=== PATIENT | female | born 1950 | race Caucasian/White ===

== ENCOUNTER 2020-01-27 13:59 | Outpatient (CLI) | payer MEDICARE, SELFPAY ==
--- NOTE | ~2020-01-27 | XR_ITS ---
XR lumbar spine 2-3V DATE: 01/27/2020 14:40 INDICATION: Low back pain, left hip pain, chronic, worsening TECHNIQUE: AP, lateral, coned lateral lumbosacral views COMPARISON: None FINDINGS: There is posterior surgical fusion at L5-S1. There is grade 1 anterolisthesis and prominent degenerative disc disease at L5-S1. No fracture or bone destruction is evident. The sacroiliac joints are unremarkable other than some degenerative sclerosis and spurring. IMPRESSION: Posterior spinal fusion, degenerative disc disease and grade 1 anterolisthesis at L5-S1 Reviewed, dictated and finalized at location A. IMPRESSION: Posterior spinal fusion, degenerative disc disease and grade 1 ante rolisthesis at L5-S1
--- NOTE | ~2020-01-27 | XR_ITS ---
EXAMINATION: XR hip LT min 2V DATE: 01/27/2020 14:40 INDICATION: Left hip pain. TECHNIQUE: 2 views of left hip were obtained. COMPARISON: None. FINDINGS: Bone alignment is normal. No fracture. Left hip joint space is normal. IMPRESSION: 1. No fracture. Reviewed, dictated and finalized at location A. IMPRESSION: 1. No fracture.
== END 2020-01-27 14:00 | disposition home or self-care (01) ==
LOC: CHSIMG 14:07
PROVIDERS: PCP Internal Medicine; Visit Provider Internal Medicine
DX: M54.5 Low back pain (principal); M25.552 Pain in left hip
CPT/HCPCS: 72100; 73502

== ENCOUNTER 2020-02-06 08:39 | Outpatient (CLI) | payer MEDICARE, SELFPAY ==
--- NOTE | ~2020-02-06 | MR_ITS ---
EXAMINATION: MR lumbar spine wo con EXAM DATE: 02/06/2020 09:35 INDICATION: Lumbar spine surgery 2001. Left hip pain. Right radiculopathy. TECHNIQUE: Multi-sequential, multiplanar MR images of the lumbar spine were obtained without contrast . Sagittal T1, T2, T2 fat saturation images. Axial T2 weighted images. There is no prior study for comparison. FINDINGS: There is posterior fusion hardware L5-S1, and about 5 mm anterolisthesis, moderate disc dis ease with endplate degenerative signal change at this level. The vertebral bodies are otherwise align ed. The vertebral body and disc heights are otherwise well maintained. Paraspinal soft tissue is unre markable. Level by level evaluation: T12-L1: Disc does not extend beyond the endplate margin. Facet arthropathy: Minimal. Neural foraminal stenosis: No stenosis. Central canal stenosis: No stenosis. L1-L2: Disc does not extend beyond the endplate margin. Facet arthropathy: Mild. Neural foraminal stenosis: No stenosis. Central canal stenosis: No stenosis. L2-L3: There is a minimal diffuse disc bulge. Facet arthropathy: Moderate. Neural foraminal stenosis: Mild to moderate bilateral. Central canal stenosis: No stenosis. L3-L4: There is a mild diffuse disc bulge. Facet arthropathy: Moderate. Neural foraminal stenosis: Mild to moderate bilateral. Central canal stenosis: Mild to moderate. L4-L5: There is a minimal diffuse disc bulge. Facet arthropathy: Moderate. Neural foraminal stenosis: Mild bilateral. Central canal stenosis: Mild. L5-S1: Disc does not extend beyond the endplate margin. Facet arthropathy: None. Neural foraminal stenosis: No stenosis. Central canal stenosis: No stenosis. IMPRESSION: 1. L5-S1 fusion, grade 1 anterolisthesis. 2. Mild to moderate lumbar spondylosis. Reviewed, dictated and finalized at location A.
== END 2020-02-06 08:40 | disposition home or self-care (01) ==
LOC: CHSIMG 08:42
PROVIDERS: PCP Internal Medicine; Visit Provider Internal Medicine
DX: M54.16 Radiculopathy, lumbar region (principal)
CPT/HCPCS: 72148

== ENCOUNTER 2020-03-24 12:37 | Outpatient (CLI) | payer MEDICARE, SELFPAY ==
--- NOTE | ~2020-03-24 | DEXA_ITS ---
BMD(1) Young-Adult(2,7) Age-Matched(3) Region (g/cm2) T-score Z-score WHO Classification Neck Left 0.771 -1.9 -0.9 Osteopenia Right 0.892 -1.0 -0.1 Normal Mean 0.831 -1.5 -0.5 Osteopenia Difference 0.122 0.9 0.9 - Total Left 0.971 -0.3 0.4 Normal Right 0.943 -0.5 0.2 Normal Mean 0.957 -0.4 0.3 Normal Difference 0.028 0.2 0.2 - Hip [place] Length Comparison (mm) (Right = 120.7 mm) (Mean = 108.5 mm) (Left = 120.1 mm) Trend: Total Mean Change vs Change vs Measured Age BMD(1) Baseline Previous Date (years) (g/cm2) (%) (%) 03/24/2020 [age] 0.957 baseline - 1 - Statistically 68% of repeat scans fall within 1SD (+- 0.010 g/cm2 for DualFemur Total) 2 - [place] (Combined NHANES (ages 20-30) / [place] (ages 20-40)) Femur Reference Population (v112) 3 - Matched for Age, Weight (females 25-100 kg), Ethnic 7 - DualFemur Total T-score difference is 0.2. Asymmetry is None. 11 - World Health Organization - Definition of Osteoporosis and Osteopenia for Women: Normal = T-score at or above -1.0 SD; Osteopenia = T-score between -1.0 and -2.5 SD; Osteoporosis = T-score at or below -2.5 SD; (WHO definitions only apply when a young healthy Women reference database is used to determine T-scores.) Printed: 03/24/2020 1:29:20 PM (13.60); Filename: [id number]; Right Femur; 23.0:%Fat=39.1%; Neck Angle (deg)= 62; Scan Mode: Standard 37.0 uGy; Left Femur; 23.4:%Fat=38.5%; Neck Angle (deg)= 67; Scan Mode: Standard 37.0 uGy Endoclear [id number] Dear Estrellita Moyer, Your patient Kevan Mello completed a BMD test on 03/24/2020 using the Endoclear DXA System (analysis version: 13.60) manufactured by [employer]. The following summarizes the results of our evaluation. PATIENT BIOGRAPHICAL: Name: Kevan Mello Date: 1950 Height: 66.0 in. Gender: Female Exam Date: 03/24/2020 Weight: 230.0 lbs. Indications: , History of Fracture (Adult), Menopause Fractures: Foot Treatments: Vitamin D, Multivitamin ASSESSMENT: The BMD measured at Femur Neck Left is 0.771 g/cm2 with a T-score of -1.9. This patient is considered osteopenic according to World Health Organization (WHO) criteria. Bone density is between 10 and 25% below young normal. Fracture risk is moderate. Treatment is advised. Site Region Measured Measured WHO Young Adult Young Adult BMD Date Age Classification T-score AM Z-score DualFemur Neck Left 03/24/2020 69.5 Osteopenia -1.9 -0.9 0.771 g/cm2 DualFemur Neck Right 03/24/2020 71.5 Normal -1.0 -0.1 0.892 g/cm2 DualFemur Total Mean 03/24/2020 71.5 Normal -0.4 0.3 0.957 g/cm2 World Health Organization (WHO) criteria for post-menopausal, Women: Normal: T-score at or above -1 SD Osteopenia: T-score between -1 and -2.5 SD Osteoporosis: T-score at or below -2.5 SD RECOMMENDATIONS: NOF Guidelines recommend treatment for patients with a T-score of -1.5 and below with risk factors or -2.0 and below without risk factors. Effective therapies are available in the form of bisphosphonates (Fosamax and Actonel), and Evista. Hormone therapy may be an option
--- NOTE | ~2020-03-24 | MM_ITS ---
EXAMINATION: MM screening [facility] BI w oma HISTORY: Screening mammogram, family history of breast cancer in her mother. TECHNIQUE: Craniocaudal and mediolateral oblique 3-D tomosynthesis images were obtained and synthetic 2-D images were generated. CAD analysis was submitted and interpreted. COMPARISON: 10/30/2018, 10/22/2018, 09/03/2017, 08/14/2017 BREAST PARENCHYMAL COMPOSITION: There are scattered areas of fibroglandular density. FINDINGS: There is no evidence of suspicious mass, calcification, or architectural distortion to sugg est malignancy in either breast. There has been no suspicious interval change. IMPRESSION: 1. No mammographic evidence of malignancy. 2. Recommend routine screening mammography in one year. BI-RADS Category 1: Negative Reviewed, dictated and finalized at location A.
== END 2020-03-24 12:38 | disposition home or self-care (01) ==
LOC: CHSIMG 12:38
PROVIDERS: PCP Internal Medicine; Visit Provider Internal Medicine
DX: Z12.31 Encounter for screening mammogram for malignant neoplasm of breast (principal); M81.0 Age-related osteoporosis without current pathological fracture
CPT/HCPCS: 77063; 77067; 77080

== ENCOUNTER 2021-01-14 10:09 | Outpatient (CLI) | payer MEDICARE, SELFPAY | END 2021-01-14 10:10 | disposition home or self-care (01) | LOC: CHSCOVIDVC 10:10 | PROVIDERS: PCP Internal Medicine | DX: Z23 Encounter for immunization (principal) | CPT/HCPCS: 0011A; 91301 ==

== ENCOUNTER 2021-02-11 09:45 | Outpatient (CLI) | payer MEDICARE, SELFPAY | END 2021-02-11 09:46 | disposition home or self-care (01) | LOC: CHSCOVIDVC 09:46 | PROVIDERS: PCP Internal Medicine | DX: Z23 Encounter for immunization (principal) | CPT/HCPCS: 0012A; 91301 ==

== ENCOUNTER 2021-03-27 07:12 | Outpatient (CLI) | payer MEDICARE, SELFPAY ==
--- NOTE | ~2021-03-27 | MM_ITS ---
EXAMINATION: MM screening [facility] BI w oma HISTORY: Screening mammogram, family history of breast cancer in her mother. TECHNIQUE: Craniocaudal and mediolateral oblique 3-D tomosynthesis images were obtained and synthetic 2-D images were generated. CAD analysis was submitted and interpreted. COMPARISON: 03/24/2020, 10/30/2018, 10/22/2018, 09/03/2017, 08/14/2017 BREAST PARENCHYMAL COMPOSITION: There are scattered areas of fibroglandular density. FINDINGS: A stable low-density mass in the posterior third of the lower right breast considered benig n given the lack of interval change. There is no evidence of suspicious mass, calcification, or archi tectural distortion to suggest malignancy in either breast. There has been no suspicious interval ashli nge. IMPRESSION: 1. No mammographic evidence of malignancy. 2. Recommend routine screening mammography in one year. BI-RADS Category 2: Benign finding(s). Reviewed, dictated and finalized at location A.
== END 2021-03-27 07:13 | disposition home or self-care (01) ==
LOC: CHSIMG 07:14
PROVIDERS: PCP Internal Medicine; Visit Provider Internal Medicine
DX: Z12.31 Encounter for screening mammogram for malignant neoplasm of breast (principal)
CPT/HCPCS: 77063; 77067

== ENCOUNTER 2021-07-17 11:18 | Outpatient (CLI) | payer MEDICARE, SELFPAY ==
[2021-07-17 12:42] LABS: Influenza A QL RT-PCR Negative (Negative); Influenza B QL RT-PCR Negative (Negative); SARS-CoV-2 RNA PCR Positive (Negative)
== END 2021-07-17 11:19 | disposition home or self-care (01) ==
LOC: CHSLAB 11:22
PROVIDERS: PCP Internal Medicine; Visit Provider Internal Medicine
DX: U07.1 COVID-19 (principal); J06.9 Acute upper respiratory infection, unspecified
CPT/HCPCS: 87502; C9803; U0003; U0005

== ENCOUNTER 2022-01-19 10:32 | Outpatient (CLI) | payer MEDICARE, SELFPAY ==
--- NOTE | ~2022-01-19 | XR_ITS ---
EXAMINATION: XR knee LT 3V DATE: 01/19/2022 10:57 INDICATION: Left knee pain TECHNIQUE: Four views of the left knee were obtained. COMPARISON: None. FINDINGS: Alignment is normal. No fracture or osteochondral lesion. There is mild tricompartmental os teoarthritis characterized by tiny marginal osteophytes. No joint effusion/synovitis. Soft tissues a re unremarkable. IMPRESSION: 1. No acute osseous abnormality. Reviewed, dictated and finalized at location B.
--- NOTE | ~2022-01-19 | US_ITS ---
EXAMINATION: US venous doppler [facility] DATE: 01/19/2022 11:05 INDICATION: Left lower extremity swelling and pain TECHNIQUE: Mcclendon scale images without and with compression and Doppler images of the left lower extrem ity veins were obtained. COMPARISON: None FINDINGS: The left common femoral vein, profunda femoral vein, femoral vein, popliteal vein, peroneal trunk, posterior tibial veins, and greater saphenous vein are patent. IMPRESSION: 1. Patent left lower extremity veins. No evidence of deep venous thrombosis. Reviewed, dictated and finalized at location B.
[2022-01-19 10:44] LABS: Basophils Absolute Auto 0.03 K/mm3 (0.00-0.10); Basophils Percent Auto 0.6 % (0.0-1.0); Eosinophils Absolute Auto 0.18 K/mm3 (0.02-0.50); Eosinophils Percent Auto 3.7 % (1.0-6.0); Hemoglobin 13.3 g/dL (11.7-13.8); Immature Granulocyte Absolute 0.01 K/mm3 (0.00-0.00); Immature Granulocyte Percent A 0.2 % (0.0-0.0); Lymphocytes Absolute Auto 1.29 K/mm3 (1.10-4.50); Lymphocytes Percent Auto 26.2 % (18.0-42.0); Mean Corpuscular HGB Conc 32.4 g/dL (32.0-36.0); Mean Corpuscular Hemoglobin 29.6 pg (27.0-31.0); Mean Corpuscular Volume 91.1 fL (78.0-102.0); Mean Platelet Volume 10.8 fl (9.2-11.8); Monocytes Absolute Auto 0.49 K/mm3 (0.10-0.90); Monocytes Percent Auto 9.9 % (2.0-11.0); Neutrophils Absolute Auto 2.9 K/mm3 (1.7-7.2); Neutrophils Percent Auto 59.4 % (50.0-70.0); Platelet Count Result 201 K/mm3 (150-420); Red Cell Distribution Width 13.9 % (11.6-14.4); White Blood Count 4.9 K/mm3 (4.8-10.8)
[2022-01-19 10:58] LABS: Partial Thromboplastin Time 26.6 SEC (23.90-30.70); Prothrombin Time 10.6 Seconds (9.50-12.10)
[2022-01-19 11:02] LABS: Alanine Aminotransferase 34 U/L (14-59); Albumin Level 3.7 g/dL (3.4-5.0); Alkaline Phosphatase 81 U/L (46-116); Anion Gap 6 mmol/L (8-16); Aspartate Amino Transferase 24 U/L (15-37); Bilirubin,Total 0.4 mg/dL (0.00-1.00); Blood Urea Nitrogen 17 mg/dL (7-18); Calcium 8.6 mg/dL (8.5-10.1); Carbon Dioxide 27 mmol/L (21-32); Chloride 108 mmol/L (98-108); Estimated Glomerular Filt Rate > 60; Glucose 84 mg/dL (70-99); Osmolality Calculated 292 mOsm/kg (285-295); Sodium 141 mmol/L (136-145); Uric Acid 4.8 mg/dL (2.6-6.0)
[2022-01-19 11:37] LABS: CRP < 0.2 mg/dL (0.0-0.9)
[2022-01-19 11:49] LABS: Erythrocyte Sedimentation Rate 12 mm/hr (0-20)
== END 2022-01-19 10:33 | disposition home or self-care (01) ==
LOC: CHSLAB 10:35
PROVIDERS: PCP Internal Medicine; Visit Provider Internal Medicine
DX: M79.89 Other specified soft tissue disorders (principal)
CPT/HCPCS: 36415; 73562; 80053; 84550; 85025; 85380; 85610; 85652; 85730; 86140; 93971

== ENCOUNTER 2022-03-29 07:15 | Outpatient (CLI) | payer MEDICARE, SELFPAY ==
--- NOTE | ~2022-03-29 | MM_ITS ---
EXAMINATION: MM screening [facility] BI w oma HISTORY: Screening mammogram TECHNIQUE: Craniocaudal and mediolateral oblique 3-D tomosynthesis images were obtained and synthetic 2-D images were generated. CAD analysis was submitted and interpreted. COMPARISON: 03/27/2021, 03/24/2020, 10/30/2018, 10/22/2018 BREAST PARENCHYMAL COMPOSITION: There are scattered areas of fibroglandular density. FINDINGS: There is no suspicious mass, calcification, or architectural distortion to suggest malignan cy in either breast. There has been no suspicious interval change. IMPRESSION: 1. No mammographic evidence of malignancy. 2. Recommend routine screening mammography in one year. BI-RADS Category 1: Negative Reviewed, dictated and finalized at location A.
== END 2022-03-29 07:16 | disposition home or self-care (01) ==
LOC: CHSIMG 07:16
PROVIDERS: PCP Internal Medicine; Visit Provider Internal Medicine
DX: Z12.31 Encounter for screening mammogram for malignant neoplasm of breast (principal)
CPT/HCPCS: 77063; 77067

== ENCOUNTER 2022-10-01 08:38 | Outpatient (CLI) | payer MEDICARE, SELFPAY ==
--- NOTE | ~2022-10-01 | DEXA_ITS ---
Bone Density Report Name: QUENTIN WYNNE Age: 72 Sex: Female Ethnicity: White Date of : 1950 Indication: postmenopausal; screening for osteoporosis; height loss; Referring Provider: Estrellita Moyer Study: Bone densitometry was performed. Exam Date: October 01, 2022 Accession number: [id number] Bone Density: Region BMD T-score Z-score Classification AP Spine(L1, L2, L3) 1.021 0.0 2.3 Normal Femoral Neck (Left) 0.710 -1.3 0.8 Osteopenia Total Hip (Left) 0.920 -0.2 1.5 Normal Femoral Neck (Right) 0.706 -1.3 0.7 Osteopenia Total Hip (Right) 0.914 -0.2 1.5 Normal Femoral Neck Mean 0.708 -1.3 0.8 Osteopenia Total Hip Mean 0.917 -0.2 1.5 Normal World Health Organization criteria for BMD impression classify patients as: Normal (T-score at or above -1.0), Osteopenia (T-score between -1.0 and -2.5), or Osteoporosis (T-score at or below -2.5). 10-year Fracture Risk(1): Major Osteoporotic Fracture 9.3% Hip Fracture 1.4% Reported Risk Factors: [place] (), Neck BMD=0.706, BMI=39.2 (1) FRAX(R) Version 3.08. Fracture probability calculated for an untreated patient. Fracture probability may be lower if the patient has received treatment. Clinical Information Provided by Patient: Has used the following medications: Vitamin D Patient maximum height was 68 Menopause Age: 48 No regular weight bearing exercise Onset of menses at age 12 Number of children 0 Impression: The patient has low bone mass, based on the Left Femoral Neck T-score. Discussion: BONE DENSITY IS LOW AT ONE OR MORE SKELETAL SITES. This patient's lowest T-score is low at one or more skeletal sites. It meets the World Health Organization's (WHO) criteria for ?low bone mass? (T-score between -1.0 and -2.5). The patient's 10-year risk of fracture as calculated by FRAX is less than the threshold where pharmacological therapy is recommended by the National Osteoporosis Foundation (NOF). However, all treatment decisions require clinical judgment and consideration of individual patient factors, including patient preferences, comorbidities, previous drug use, risk factors not captured in the FRAX model (e.g., frailty, falls, vitamin D deficiency, increased bone turnover, interval significant decline in bone density) and possible under or overestimation of fracture risk by FRAX. The patient should follow a healthful lifestyle (good nutrition with adequate calcium and vitamin D, and appropriate weight-bearing exercise). Follow-Up: Consider repeating this study in 2 to 3 years to reassess this patient's status, or sooner if there is some new clinical indication. Reported by: Dr. Crescencio Poe on 10/01/2022 9:34:00 AM. Reviewed, dictated and fi
== END 2022-10-01 08:39 | disposition home or self-care (01) ==
LOC: CHSIMG 08:39
PROVIDERS: PCP Internal Medicine; Visit Provider Internal Medicine
DX: Z78.0 Asymptomatic menopausal state (principal); M85.89 Other specified disorders of bone density and structure, multiple sites
CPT/HCPCS: 77080

== ENCOUNTER 2022-11-22 01:14 | Day surgery (SDC) | payer MEDICARE, SELFPAY ==
[2022-11-09 11:38] VITALS: BMI 37.5
[2022-11-22 06:13] VITALS: BP 162/96; PULSE 75; RESP 16; TEMP 36; O2SAT 98
[2022-11-22] MEDS: LACTATED RINGERS 1,000 ML 150 ML IV CONT (06:14)
--- NOTE | 2022-11-22 07:18 | P.PNAN_ITS ---
Anes - Initial Pre Proc Eval Procedure: Operation Date: 11/22/22 07:30 Proposed Procedures p Colonoscopy - Carmelo Stroud DO Date/Time: 11/22/22 07:18 Surgeon: Carmelo Stroud DO Pre Op Diagnosis: hx colon polyps Patient Data Age: 72 Gender: F Height: 1.7 m Weight: 112.3 kg Last Vital Signs Temp 96.8 F L 11/22/22 06:13 Pulse 75 11/22/22 06:13 Resp 16 11/22/22 06:13 BP 162/96 H 11/22/22 06:13 Pulse Ox 98 11/22/22 06:13 O2 Del Method Room Air 11/22/22 06:13 Allergies Allergy/AdvReac Type Severity Reaction Status Date / Time No Known Allergies Allergy Verified 11/22/22 06:12 Home Medications Medication Instructions Recorded Confirmed Type aspirin 81 mg tablet 81 mg PO DAILY 11/09/22 11/22/22 History cholecalciferol (vitamin D3) 25 25 mcg PO DAILY 11/09/22 11/22/22 History mcg (1,000 unit) tablet (Vitamin D3) folic acid 400 mcg tablet 0.4 mg PO DAILY 11/09/22 11/22/22 History lovastatin 40 mg tablet 40 mg PO DAILY 11/09/22 11/22/22 History mecobalamin (vitamin B12) 2,500 2,500 mcg PO DAILY 11/09/22 11/22/22 History mcg chewable tablet pyridoxine (vitamin B6) 100 mg 100 mg PO DAILY 11/09/22 11/22/22 History tablet Patient hx anesthesia problems: none Family hx anesthesia problems: none Results Review: All pre-operative results and documents have been reviewed as part of the pre- operative evaluation. [facility] Social History Social History (System 12/29/19 @ 16:41 by Anika Phillip) Smoking status: Never smoker Alcohol intake: current Drinks per week: 4 Substance use: never Substance use type: does not use Living arrangements: with family Spiritual care concerns: No Anes - Eval Final PreProcedure Day of Procedure 11/22/22 07:18 Patient weight: obese Heart: regular rate and rhythm Lungs: clear to auscultation Airway: Mallampati scale class II Neurological: alert and oriented Last oral intake: >/= 8 hours ASA classification: II Emergent: no Anesthetic plan: proceed Anesthesia type and monitoring: general GIVS and standard monitoring Results Review: All pre-operative results and documents have been reviewed as part of the pre- operative evaluation. Informed Consent: The patient's anesthetic plan and its attendant risks and benefits were discussed with the patient/family/POA. Questions were solicited and answers provided to the satisfaction of the patient/family/POA.
--- NOTE | 2022-11-22 07:33 | PM.IMHP ---
H&P: HPI History of Present Illness Date/Time: 11/22/22 07:33 Chief Complaint: History of colon polyps, family history of colon cancer Narrative: 72-year-old woman presents for colonoscopy. Her last colonoscopy was 5 years ago. Polyps were removed at that time. She denies any hematochezia or melena. She does have a family history of colon cancer in her mother. Review of Systems Review of Systems: All systems reviewed & are unremarkable except as noted in HPI and below Constitutional: Constitutional: Denies chills, Denies fever(s), Denies headache(s) and Denies weight loss Eyes: Eyes: Denies change in vision ENT: Denies dizziness, Denies headache(s), Denies neck mass and Denies throat swelling Cardiovascular: Cardiovascular: Denies chest pain, Denies lightheadedness and Denies dyspnea Respiratory: Respiratory: Denies cough, Denies dyspnea and Denies wheezing Gastrointestinal: Gastrointestinal: Denies abdominal pain, Denies change in bowel habits, Denies nausea and Denies vomiting Genitourinary: Genitourinary: Denies hematuria and Denies dysuria Musculoskeletal: Musculoskeletal: Reports as per HPI Integumentary/Breasts: Skin/Breast: Reports as per HPI Neurologic: Denies dizziness and Denies headache(s) Allergic/Immunologic: Allergic/Immunologic: Denies throat swelling and Denies wheezing [facility] Social History Social History (System 12/29/19 @ 16:41 by Anika Phillip) Smoking status: Never smoker Alcohol intake: current Drinks per week: 4 Substance use: never Substance use type: does not use Living arrangements: with family Spiritual care concerns: No Meds Home Medications and Allergies Home Medications Medication Instructions Recorded Confirmed Type aspirin 81 mg tablet 81 mg PO DAILY 11/09/22 11/22/22 History cholecalciferol (vitamin D3) 25 25 mcg PO DAILY 11/09/22 11/22/22 History mcg (1,000 unit) tablet (Vitamin D3) folic acid 400 mcg tablet 0.4 mg PO DAILY 11/09/22 11/22/22 History lovastatin 40 mg tablet 40 mg PO DAILY 11/09/22 11/22/22 History mecobalamin (vitamin B12) 2,500 2,500 mcg PO DAILY 11/09/22 11/22/22 History mcg chewable tablet pyridoxine (vitamin B6) 100 mg 100 mg PO DAILY 11/09/22 11/22/22 History tablet Allergies Allergy/AdvReac Type Severity Reaction Status Date / Time No Known Allergies Allergy Verified 11/22/22 06:12 Vital Signs Vital Signs - 24 hr 11/22/22 06:13 Temperature 36.0 C L Pulse Rate 75 Respiratory Rate 16 Blood Pressure 162/96 H Pulse Oximetry 98 Oxygen Delivery Room Air Exam Const: General: no acute distress and alert Orientation/consciousness: patient oriented x3 HENMT: Head: normocephalic and atraumatic Ears: hearing grossly normal bilaterally Face/Nose/Sinus: Normal nares present Mouth: Yes Normal oral and palatal mucosa present Eyes: Periorbital: periorbital findings normal Sclera: sclerae normal EOM: EOMs intact bilaterally Neck: Neck: normal visual inspection, no lymphadenopathy and trachea midline Chest: Chest palpation & inspection: normal inspection of the chest Resp: Effort & Inspection: normal respiratory effort Auscultation: clear to auscultation bilaterally Cardio: Jugular venous distension: no JVD Rate: regular rate Rhythm: regular rhythm Heart sounds: S1 normal heart sound present and S2 normal heart sound present Peripheral pulses: Peripheral pulses 2+ throughout GI: Inspection: normal to inspection GI Palp: Yes Soft to palpation, No Tenderness to palpation present (GI), No Guarding due to palpation present (GI) and No Rebound tenderness present Percussion: Yes normal to percussion Auscultation: normal bowel sounds : General: Yes no CVA tenderness Back/Spine/Pelvis: Back: no CVA tenderness Neuro: General: patient oriented x3, no focal motor deficits and CN's II-XI intact bilaterally Cognition (Neuro): normal cognition Speech: normal speech Motor exam (neuro): 5
[2022-11-22 07:47] VITALS: BP 103/71; PULSE 68; RESP 22; O2SAT 98
[2022-11-22 07:57] VITALS: BP 120/67; PULSE 60; RESP 19; O2SAT 100
[2022-11-22 08:07] VITALS: BP 127/74; PULSE 60; RESP 19; O2SAT 99
== END 2022-11-22 08:22 | disposition home or self-care (01) ==
PROVIDERS: PCP Internal Medicine; Visit Provider Surgery
PROC: 0DJD8ZZ Inspection of Lower Intestinal Tract, Via Natural or Artificial Opening Endoscopic (ICD-10-PCS; CPT 45378; principal; 2022-11-22 07:30)
DX: Z12.11 Encounter for screening for malignant neoplasm of colon (principal); K57.30 Diverticulosis of large intestine without perforation or abscess without bleeding; K64.8 Other hemorrhoids; Z86.010 Personal history of colon polyps; Z80.0 Family history of malignant neoplasm of digestive organs; Z79.82 Long term (current) use of aspirin; E66.9 Obesity, unspecified; Z68.38 Body mass index [BMI] 38.0-38.9, adult
CPT/HCPCS: G0105; J2704; J7120

== ENCOUNTER 2023-04-25 07:43 | Outpatient (CLI) | payer MEDICARE, SELFPAY ==
--- NOTE | ~2023-04-25 | MM_ITS ---
EXAMINATION: MM screening [facility] BI w oma HISTORY: Screening mammogram, family history of breast cancer in her mother. TECHNIQUE: Craniocaudal and mediolateral oblique 3-D tomosynthesis images were obtained and synthetic 2-D images were generated. CAD analysis was submitted and interpreted. COMPARISON: 03/29/2022, 03/27/2021, 03/24/2020 BREAST PARENCHYMAL COMPOSITION: There are scattered areas of fibroglandular density. FINDINGS: No suspicious mass, calcification, or architectural distortion are identified in either cata ast to suggest malignancy. There has been no suspicious interval change. IMPRESSION: 1. No mammographic evidence of malignancy. 2. Recommend routine screening mammography in one year. BI-RADS Category 1: Negative Reviewed, dictated and finalized at location A.
== END 2023-04-25 07:44 | disposition home or self-care (01) ==
LOC: CHSIMG 07:45
PROVIDERS: PCP Internal Medicine; Visit Provider Internal Medicine
DX: Z12.31 Encounter for screening mammogram for malignant neoplasm of breast (principal)
CPT/HCPCS: 77063; 77067

== ENCOUNTER 2024-04-28 08:16 | Outpatient (CLI) | payer MEDICARE, SELFPAY ==
--- NOTE | ~2024-04-28 | MM_ITS ---
EXAMINATION: MM screening [facility] BI w oma HISTORY: Screening TECHNIQUE: Craniocaudal and mediolateral oblique 3-D tomosynthesis images were obtained and synthetic 2-D images were generated. CAD analysis was submitted and interpreted. COMPARISON: Comparison to multiple prior studies sequentially, with oldest reviewed study dated 02/2019. BREAST PARENCHYMAL COMPOSITION: Not dense: There are scattered areas of fibroglandular density. FINDINGS: There is no evidence of suspicious mass, calcification, or architectural distortion to sugg est malignancy in either breast. There has been no suspicious interval change. IMPRESSION: 1. No mammographic evidence of malignancy. 2. Recommend routine screening mammography in one year. BI-RADS Category 1: Negative Reviewed, dictated and finalized at location B.
== END 2024-04-28 08:17 | disposition home or self-care (01) ==
LOC: CHSIMG 08:18
PROVIDERS: PCP Internal Medicine; Visit Provider Internal Medicine
DX: Z12.31 Encounter for screening mammogram for malignant neoplasm of breast (principal)
CPT/HCPCS: 77063; 77067

== ENCOUNTER 2025-04-30 13:10 | Outpatient (CLI) | payer MEDICARE, SELFPAY ==
--- NOTE | ~2025-04-30 | MM_ITS ---
EXAMINATION: MM screening [facility] w [facility] HISTORY: Screening TECHNIQUE: Craniocaudal and mediolateral oblique 3-D tomosynthesis images were obtained and synthetic 2-D images were generated. CAD analysis was submitted and interpreted. COMPARISON: Comparison to multiple prior studies sequentially, with oldest reviewed study dated 03/24/2020. BREAST PARENCHYMAL COMPOSITION: Not dense: There are scattered areas of fibroglandular density. FINDINGS: There is no evidence of suspicious mass, calcification, or architectural distortion to sugg est malignancy in either breast. There has been no suspicious interval change. IMPRESSION: 1. No mammographic evidence of malignancy. 2. Recommend routine screening mammography in one year. BI-RADS Category 1: Negative Reviewed, dictated and finalized at location A.
--- NOTE | ~2025-04-30 | DEXA_ITS ---
Bone Density Report Name: QUENTIN WYNNE Age: 74 Sex: Female Ethnicity: White Date of : 1950 Indication: postmenopausal; screening for osteoporosis; height loss; Referring Provider: Estrellita Moyer Study: Bone densitometry was performed. Exam Date: April 30, 2025 Accession number: [id number] Bone Density: Region BMD T-score Z-score Classification AP Spine(L1, L2, L3) 1.025 0.1 2.5 Normal Femoral Neck (Left) 0.738 -1.0 1.2 Normal Total Hip (Left) 0.985 0.4 2.2 Normal Femoral Neck (Right) 0.706 -1.3 0.9 Osteopenia Total Hip (Right) 0.969 0.2 2.1 Normal Femoral Neck Mean 0.722 -1.1 1.0 Osteopenia Total Hip Mean 0.977 0.3 2.2 Normal World Health Organization criteria for BMD impression classify patients as: Normal (T-score at or above -1.0), Osteopenia (T-score between -1.0 and -2.5), or Osteoporosis (T-score at or below -2.5). 10-year Fracture Risk(1): Major Osteoporotic Fracture 10% Hip Fracture 1.8% Reported Risk Factors: [place] (), Neck BMD=0.706, BMI=39.2 (1) FRAX(R) Version 3.08. Fracture probability calculated for an untreated patient. Fracture probability may be lower if the patient has received treatment. Previous Exams: Region Exam Age BMD T-score BMD Change BMD Change Date g/cm2 vs Baseline vs Previous AP Spine (L1-L3) 04/30/2025 74 1.025 0.1 -0.100 (-8.9%) 0.004 (0.4%) 10/01/2022 72 1.021 0.0 -0.104 (-9.2%) -0.119 (-10.4% 08/16/2017 66 1.139 1.1 0.015 (1.3%) 0.015 (1.3%) 03/11/2015 64 1.125 1.0 Total Hip(Left) 04/30/2025 74 0.985 0.4 0.076 (8.4%)# 0.065 (7.0%)* 10/01/2022 72 0.920 -0.2 0.011 (1.2%)# 0.015 (1.6%)# 03/24/2020 69 0.906 -0.3 -0.003 (-0.4%) -0.012 (-1.3%) 08/16/2017 66 0.918 -0.2 0.009 (1.0%) 0.009 (1.0%) 03/11/2015 64 0.909 -0.3 Total Hip(Right) 04/30/2025 74 0.969 0.2 0.090 (10.3%)# 0.055 (6.0%)* 10/01/2022 72 0.914 -0.2 0.036 (4.1%)# 0.036 (4.1%)# 03/24/2020 69 0.878 -0.5 *Denotes significance at 95% confidence level, LSC for AP Spine = 0.022 g/cm2, LSC for Total Hip = 0.027 g/cm2 # Denotes dissimilar scan types or analysis methods Clinical Information Provided by Patient: Has used the following medications: Vitamin D Patient maximum height was 68. Menopause Age: 48 No regular weight bearing exercise Onset of menses at age 11 Number of children 0 Impression: The patient has low bone mass, based on the Right Femoral Neck T-score. No significant bone loss was observed. Discussion: BONE DENSITY IS LOW AT ONE OR MORE SKELETAL SITES. This patient's lowest T-score is low at one or more skeletal sites. It meets the World Health Organization's (WHO) criteria for ?low bone mass? (T-score between -1.0 and -2.5). The patient's 10-year risk of fracture as calculated by FRAX is less than the threshold where pharmacological therapy is recommended by the National Osteoporosis Foundation (NOF). However, all treatment decisions require clinical judgment and consideration of individual patient factors, including patient preferences, comorbidities, previous drug use, risk factors not captured in the FRAX model (e.g., frailty, falls, vitamin D deficiency, increased bone turnover, interval significant decline in bone density) and possible under or overestimation of fracture risk by FRAX. The patient should follow a healthful lifestyle (good nutrition with adequate calcium and vitamin D, and appropriate weight-bearing exercise). Follow-Up: Consider repeating this study in 2 to 3 years to reassess this patient's status, or sooner if there is some new clinical indication. Reported by: DAWOOD on 04/30/2025 1:42:00 PM. Reviewed, dictated and finalized at location A.
--- OUTSIDE RECORDS SUMMARY | 2025-04-30 13:14 | XMS_ITS | Clinical Summary ---
Author Organization [facility] Address [address] [place] [address] Care Team Providers Care Clinical Staff Rn Name Role Phone Jose Alexander MD Primary Care Provider Unav ailable Source Comments [facility],non-owned Affiliates and Associated Physician Practices is amultiple site organization consisting of ambulatory clinics and hospital sitesin [place], [place], [place] and [place]. This disclosure is being madepursuant to the Care Everywhere program and may not contain all information available regarding this patient. Last updated 18.[facility] Allergies No known active allergies Medications * Be aware that medications may not be up to date on this document. Alwaysverify current medications with the patient. lovastatin (MEVACOR) 40 MG tablet TAKE 1 TABLET AT BEDTIME 90 Tab 3 10/15/2013 Active Active Problems Problem Noted Date Diagnosed Date Routine general medical exam ination at a health care facility 04/30/12 05/02/2012 Hyperlipidemia 12/15/2009 Immunizations Immunization Administration Dates Next Due DTaP VACCINE IM (6wk-6yrs) 11/21/2008 Family History Medical History Relation Name Comments Cancer Father prostate Cancer Mother breast. 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 Gender Identity Not on file Sexual Orientation Not on file 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 Not on file Not on alessia e Last Filed Vital Signs Vital Sign Reading Time Taken Comments Blood Pressure 122/70 04/30/2012 1:33 PM CDT Pulse 76 04/30/2012 1:33 PM CDT Temperature 36.4 C (97.5 F) 12/15/2009 10:04 AM CDT Respiratory Rate 14 04/30/2012 1:33 PM CDT Oxygen Saturation - - Inhaled Oxygen Concentration - - Weight 87.9 kg (193 lb 12.8 oz) 04/30/2012 1:33 PM CDT Height 170.2 cm (5' 7) 04/30/2012 1:33 PM CDT Body Mass Index 30.35 04/30/2012 1:33 PM CDT Plan of Treatment Health Maintenance Due Date Last Done Comments BONE DENSITY TESTING 1950 HEPATITIS C SCREENING 09/12/1966 PNEUMOCOCCAL VACCINE 50+ (1 of 1 - PCV) 1998 ZOSTER VACCINE (1 of 2) 1998 DTAP/TDAP/TD VACCINES (2 - Tdap) 11/21/2018 11/22/19 09 Respiratory Syncytial Virus (RSV) Vaccine Pt: or over 60 yrs (1 - 1-dose 75+ series) 2023 COVID-19 VACCINE ( - 2023-2 5 season) 2024 DEPRESSION SCREENING 2024 INFLUENZA VACCINE (#1) 2025 HEPATITIS B VACCINE Aged Out No longe r eligible based on patient's age to complete this topic HIB VACCINE Aged Out No longer eligi ble based on patient's age to complete this topic HPV VACCINE Aged Out No longer eligi ble based on patient's age to complete this topic MENINGOCOCCAL (Group B) VACC INE SHARED DECISION-MAKING Aged Out No longer eligibl e based on patient's age to complete this topic MENINGOCOCCAL GROUPS A/C/Y/W VACCINE Aged Out No longer eligible b ased on patient's age to complete this topic Insurance BC/[facility] Care Teams Clinical Staff Rn Relationship Specialty Start Date End Date Jose Alexander MD PCP - General 09/06/09
--- OUTSIDE RECORDS SUMMARY | 2025-04-30 13:14 | XMS_ITS | Patient Health Record ---
Author Organization [facility] Address [address] [place], [place] [id number] Care Team Providers Care Protective Signal Operator Name Role Phone MARLO MARTINS Unavailable [phone] Estrellita Moyer Unavailable Unavailable Reason For Referral No Information Medications Medication SIG (Take, Route, Frequency, Duration) Notes Start Date End Date Status ciclopirox 80 MG/ML Topical Solution CUTANEOUS ciclopirox 80 MG/ML Topical SolutionOriginal Medicationciclopirox 80 MG/ML Topical Solution *Reorder from [facility] for eRx and Interaction Alerts* 10/02/2013 Active Plan Of Treatment No Information Insurance Providers Payer Name Payer Address Payer Phone Subscriber Number Group Number Insured Name Patient Relationship to Insured Coverage Start Date Coverage End Date [facility] ([facility]) ATTN CLAIMS [address] [place] [address] [id number] QUENTIN WYNNE Self - patient is the insured
== END 2025-04-30 13:11 | disposition home or self-care (01) ==
LOC: CHSIMG 13:11
PROVIDERS: PCP Internal Medicine; Visit Provider Internal Medicine
DX: Z12.31 Encounter for screening mammogram for malignant neoplasm of breast (principal); Z78.0 Asymptomatic menopausal state; M85.89 Other specified disorders of bone density and structure, multiple sites
CPT/HCPCS: 77063; 77067; 77080

== ENCOUNTER 2025-06-16 15:34 | Emergency (ER) | payer MEDICARE, SELFPAY ==
--- NOTE | 2025-06-16 15:36 | ED_ITS ---
HPI - General Adult General Chief complaint: Animal Bite Stated complaint: Cat Bite Time Seen by Provider: 06/16/25 15:35 Source: patient Mode of arrival: ambulatory Limitations: no limitations History of Present Illness HPI narrative: Patient is a 74-year-old female with a right hand pointer finger cat bite 1 month ago. The cat was very sick and was put to sleep thereafter they bite and it was a feral cat. The CT head was not sent for biopsy to look for rabies which appears to be accidental from the animal control. She saw the primary doctor today and has concerns of rabies at this point still and sent to the ER for treatment. Patient is asymptomatic. Onset (ago): month(s) (One) Location: right and upper extremity (Pointer finger) Radiation: other (None) Severity: mild Severity scale (1-10): 1 Quality: other (No pain at this time) Pain Consistency: other (No pain) Relieving factors: none Exacerbating factors: none Associated symptoms: denies other symptoms Treatments prior to arrival: none Related Data Home Medications ?Medication ?Instructions ?Recorded ?Confirmed ?Last Taken ?Type lovastatin 40 mg tablet 40 mg PO DAILY 11/09/2210/10 Unknown History Allergies Allergy/AdvReac Type Severity Reaction Status Date / Time No Known Allergies Allergy Verified 06/16/25 15:48 Review of Systems Review of Systems: All systems reviewed & are unremarkable except as noted in HPI and below Constitutional: Constitutional: Reports no additional constitutional complaints Eyes: Eyes: Reports no additional eye complaints ENT: Reports system reviewed and no additional complaints, except as documented Cardiovascular: Cardiovascular: Reports no additional cardiovascular complaints Respiratory: Respiratory: Reports no additional respiratory complaints Gastrointestinal: Gastrointestinal: Reports no additional gastrointestinal complaints Genitourinary: Genitourinary: Reports no additional female genitourinary complaints Musculoskeletal: Musculoskeletal: Reports no additional musculoskeletal complaints Integumentary/Breasts: Skin/Breast: Reports system reviewed and no additional complaints, except as docu Neurologic: Reports system reviewed and no additional complaints, except as documented Psychiatric: Psychiatric: Reports no additional psychiatric complaints Endocrine: Endocrine: Reports no additional endocrine complaints Hematologic/Lymphatic: Hematologic/Lymphatic: Reports no additional hematologic/lymphatic complaints Allergic/Immunologic: Allergic/Immunologic: Reports no additional allergic/immunologic complaints PMFSH Social History Social History Smoking status: Never smoker Alcohol intake: current Drinks per week: 4 Substance use: never Substance use type: does not use Living arrangements: with family Spiritual care concerns: No Exam Const: General: healthy appearing Nutritional Appearance: well nourished Orientation/consciousness: patient oriented x3 HENMT: Head: normal to inspection Ears: external ears normal Face/Nose/Sinus: Normal external nose present Eyes: Conjunctivae: conjunctivae normal Pupils: Equal, round and reactive pupils present EOM: EOMs intact bilaterally Neck: Neck: normal visual inspection Chest: Chest palpation & inspection: normal inspection of the chest Resp: Effort & Inspection: normal respiratory effort and not labored Auscultation: clear to auscultation bilaterally and no crackles Cardio: Rate: regular rate Rhythm: regular rhythm Heart sounds: no murmurs GI: Inspection: non-distended GI Palp: Yes Soft to palpation and No Tenderness to palpation present (GI) Auscultation: normal bowel sounds : General: Yes bladder normal to palpation Back/Spine/Pelvis: Back: no CVA tenderness Skin: General skin exam: normal color Rashes: no rashes Wounds: no wounds Other: Right hand ring finger site where cat bit her distal tip shows no signs of residual skin wound or infection as it is completely healed Neuro: General: patient oriented x3, moves all extremities and no meningeal signs Extrem: General: normal to inspection, no clubbing, cyanosis or edema and no pedal edema Psych: Mental Status: mental status grossly normal Affect: normal affect Attitude: cooperative Course Vital Signs Vital signs: Vital Signs Temperature 36.3 C L 06/16/25 15:49 Pulse Rate 88 06/16/25 15:49 Respiratory Rate 16 06/16/25 15:49 Blood Pressure 151/99 H 06/16/25 15:49 Pulse Oximetry 96 06/16/25 15:49 Oxygen Delivery Room Air 06/16/25 15:49 Temperature 36.4 C 06/16/25 18:50 Pulse Rate 60 06/16/25 18:50 Respiratory Rate 16 06/16/25 18:50 Blood Pressure 168/84 H 06/16/25 18:50 Pulse Oximetry 98 06/16/25 18:50 Oxygen Delivery Room Air 06/16/25 18:50 Procedures Other Procedure Procedure 1: Other Procedure: Right hand pointer finger cat bite 1 month ago infiltration with rabies immunoglobulin: 2220 units drawn and given 3/4 of the vial at the site of cat bite of the finger. The other 1/4 went into her opposite the deltoid. Rabies vaccine given in same side deltoid. Patient tolerated the procedure and vaccines well and no complications. The rest of the series will be called upon the patient tomorrow by infection control. Infection Control said they will also follow-up on the fact that we may be able to get the brain study at this point. Medical Decision Making MDM Narrative Medical decision making narrative: Patient is a 74-year-old female with a right hand pointer finger cat bite from a feral cat that was dying a month ago. I reviewed the case with in-house infection control as well as local health department and health department agrees that she should have the whole treatment plan for rabies prophylaxis. We will further check tomorrow with the animal control to see if they can test the brain on this CT if they still have the material. Vital Signs Vital Signs: Vital Signs Temperature 36.3 C L 06/16/25 15:49 Pulse Rate 88 06/16/25 15:49 Respiratory Rate 16 06/16/25 15:49 Blood Pressure 151/99 H 06/16/25 15:49 Pulse Oximetry 96 06/16/25 15:49 Oxygen Delivery Room Air 06/16/25 15:49 Temperature 36.4 C 06/16/25 18:50 Pulse Rate 60 06/16/25 18:50 Respiratory Rate 16 06/16/25 18:50 Blood Pressure 168/84 H 06/16/25 18:50 Pulse Oximetry 98 06/16/25 18:50 Oxygen Delivery Room Air 06/16/25 18:50 Discharge Plan Discharge Clinical Impression: Rabies, need for prophylactic vaccination against Cat bite Qualifiers: Encounter type: initial encounter Qualified Code(s): W55.01XA - Bitten by cat, initial encounter Patient Disposition: Home Condition: Stable Instructions: Rabies Vaccine (By injection), Rabies Immune Globulin (By injection) Additional Instructions: Please await for a telephone call in the next day to plan for future vaccine injections. Patient Language: Cook Islander Prescriptions: New Imovax Rabies Vaccine (PF) 2.5 unit recon soln 2.5 unit IM ONCE Qty: 1 0RF Rx Instructions: DAY 3, 7, 14 No Action lovastatin 40 mg tablet 40 mg PO DAILY Follow-up/Referrals: Estrellita Moyer MD [Primary Care Provider, Internal Medicine] Time of Disposition: 18:40
--- OUTSIDE RECORDS SUMMARY | 2025-06-16 15:36 | XMS_ITS | Clinical Summary ---
Author Organization [facility] Address [address] [place] [address] Care Team Providers Care Costume Shop Coordinator Name Role Phone Jose Alexander MD Primary Care Provider Unav ailable Source Comments [facility],non-owned Affiliates and Associated Physician Practices is amultiple site organization consisting of ambulatory clinics and hospital sitesin [place], [place], [place] and [place]. This disclosure is being madepursuant to the Care Everywhere program and may not contain all information available regarding this patient. 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
[2025-06-16 15:49] VITALS: BP 151/99; PULSE 88; RESP 16; TEMP 36.3; O2SAT 96
--- OUTSIDE RECORDS SUMMARY | 2025-06-16 16:03 | XMS_ITS | Clinical Summary ---
Author Organization [facility] Address [address] [place] [address] Care Team Providers Care Automobile Washer Steam Name Role Phone Jose Alexander MD Primary Care Provider Unav ailable Source Comments [facility],non-owned Affiliates and Associated Physician Practices is amultiple site organization consisting of ambulatory clinics and hospital sitesin [place], [place], [place]. This disclosure is being madepursuant to the Care Everywhere program and may not contain all information available regarding this patient. 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
[2025-06-16] MEDS: RABIES IMMUNE GLOBULIN/PF 1,500 UNITS/5 ML VIAL 2200 UNITS IM (18:08)
[2025-06-16] MEDS: RABIES VACCINE (IMOVAX) 2.5 UNITS VIAL IM (18:19)
[2025-06-16 18:50] VITALS: BP 168/84; PULSE 60; RESP 16; TEMP 36.4; O2SAT 98
== END 2025-06-16 19:06 | disposition home or self-care (01) ==
PROVIDERS: Emergency Provider Emergency Medicine; PCP Internal Medicine
DX: S61.250A Open bite of right index finger without damage to nail, initial encounter (principal); Z23 Encounter for immunization; W55.01XA Bitten by cat, initial encounter
CPT/HCPCS: 90375; 90471; 90675; 96372; 99283